=== PATIENT | male | born 1960 | race Caucasian/White ===

== ENCOUNTER 2017-08-08 05:58 | Day surgery (SDC) | payer BC, OTHER ==
[2017-08-07 15:09] LABS: BASOPHILS 0.3 % (0-2); EOSINOPHILS 2.1 % (0-7); HEMATOCRIT 48.4 % (42.0-54.0); HEMOGLOBIN 16.2 g/dL (13.5-17.5); IMMATURE GRANULOCYTES 0.1 % (0-5); MCH 32.9 pg (26.0-34.0); MCHC 33.5 g/dL (31.0-37.0); MCV 98.4 fL (80.0-100.0); MEAN PLATELET VOLUME 11.2 fL (7.4-10.4); MONOCYTES 7.9 % (2-11); NEUTROPHILS 56.6 % (40-80); PLATELET COUNT 189 10x3/uL (130-400); RBC 4.92 10x6/uL (4.20-6.10); RDW 13.6 % (11.5-14.5); WBC 7.3 10x3/uL (4.8-10.8)
[2017-08-07 15:16] LABS: ANION GAP 8.7 mmol/L (8-16); CALCIUM 9.4 mg/dL (8.5-10.1); CARBON DIOXIDE 33.9 mmol/L (21.0-32.0); CREATININE - SERUM 4.9 mg/dL (0.6-1.3); POTASSIUM - SERUM 3.6 mmol/L (3.5-5.1)
[2017-08-07 15:17] LABS: APTT 29.2 SECONDS (22.8-39.4); INR 0.9 (0.85-1.17); PROTIME 11.9 SECONDS (11.6-15.0)
[~2017-08-08 05:58] MED LIST: BAYER CHEWABLE81 MG PO; HYDROCODON-ACE1 EAC7 PO; HYZAAR 100-12.51 TAB PO; LIPITOR40 MG PO; PRINIVIL20 MG; TOPROL XL100 MG; ZOCOR20 MG PO; ZYLOPRIM100 MG PO
[2017-08-08 07:02] VITALS: BP 142/74; BMI 30.1
[2017-08-08] MEDS ORDERED: ULTRAM50 MG PO (09:22)
--- NOTE | 2017-08-08 09:35 | NUR ---
TO ROOM AWAKE AND ALERT, DRESSING C/D/I TO ABD
--- NOTE | 2017-08-08 11:09 | NUR ---
1100 DISCHARGE INSTRUCTIONS COMPLETE. FOLLOW UP APPOINTMENT MADE. PRESCRIPTION FOR TRAMADOL GIVEN. PT NAUSEATED BUT DOES NOT WANT TO TAKE ANY MEDICATION-STATED HE FEELS BETTER AFTER HE THROWS UP. PT ESCORTED OUT BY PATRICIA DECKER.
--- NOTE | 2017-08-11 16:39 | OP ---
PATIENT NAME: NOY OLIVIA JR MEDICAL RECORD: [id number] :64 LOCATION:D.OPS ADMISSION DATE: SURGEON: EDGAR IBRAHIM MD DATE OF OPERATION: 08/08/2017 REFERRING PHYSICIAN: Noy Malik MD PREOPERATIVE DIAGNOSIS: End-stage renal disease, on dialysis. POSTOPERATIVE DIAGNOSIS: End-stage renal disease, on dialysis. OPERATION PERFORMED: Laparoscopy with insertion of peritoneal dialysis catheter, inserting a left-sided gooseneck dual cuff coil catheter. SURGEON: Edgar Ibrahim MD ANESTHESIA: General endotracheal per [employer] BUSINESS DEVELOPMENT. PREOPERATIVE NOTE: Mr. Olivia is a 57-year-old white male with end-stage renal disease, on chronic hemodialysis, with a right brachial translocated basilic AV fistula, which has required several interventions I am told He wants to do home dialysis and have a peritoneal catheter implanted, is brought to the OR for that purpose. DESCRIPTION OF PROCEDURE: Under general endotracheal anesthesia in supine position, the patient was prepped and draped in a sterile manner with both arms at his side. The abdomen was entered with a 5 mm Optiview XL port and 5-mm diameter laparoscope through a stab incision in the right upper quadrant. The abdomen was insufflated then with carbon dioxide. There were no adhesions or hernias found or any signs of inflammatory processes, masses, etc. The preferred site for insertion of the catheter had been marked preoperatively and at a site just above the level of the umbilicus over the left rectus. I made an incision below and medial to that and inserted a needle and then a guidewire directly into the abdominal cavity. A dilator peel-away sheath was inserted over the wire and lastly the catheter inserted. I placed a 5-mm port in the right lower quadrant and with a grasper pulled the catheter down into the abdominal cavity, and with a hemostat pushed the deeper of the 2 Dacron felt cuffs into the substance of the rectus muscle and parked it just anterior to the posterior sheath and peritoneum as viewed from within. The catheter was then pulled to a slightly superior and lateral incision site through a subcutaneous tunnel, leaving the superficial Dacron felt cuff well into the subcutaneous tissues. The catheter was accessed and irrigated and then aspirated. It functioned well. It was heparin-locked, clamped and capped. The insufflated carbon dioxide was allowed to escape. The wound was infiltrated with 0.25% Marcaine without epinephrine. The wounds were closed with interrupted inverted 3-0 Vicryl and Dermabond glue and dressed with Maxorb Ag, Tegaderm and Cavilon skin prep. The catheter exit site was sealed with Dermabond glue and then the catheter further secured with Mastisol and quarter inch Steri-Strips in the usual manner. A BioPatch was placed on the catheter at the exit site and the catheter was then coiled and covered with a sterile 4 x 4 dressing. The patient at that point was awakened and taken to the recovery room in stable condition. Blood loss throughout was minimal and unreplaced. All sponges, instruments, and needles were accounted for. No drain was used and no surgical specimen was submitted for histopathology. OPERATIVE REPORT [id number] CORWINNOY JR Mr. Olivia will be allowed to go home today. He will return to see me in my office next week for followup visit. He also will be scheduled to see the [facility] peritoneal dialysis nurses next week, so that his catheter can be flushed and the dressings changed on the catheter. I have given him a prescription for tramadol 50 mg #20, he can take 1 p.o. every 4 hours p.r.n. pain. TRANSINT:[id number] Voice Confirmation ID: [id number] DOCUMENT ID: [id number] EDGAR IBRAHIM MD at 1639 CC: NOY MALIK MD [id number] DICTATION DATE: 08/08/17 0931 ASSET LIABILITY ANALYST: 08/08/17 1107 [facility] 08/08/17 [facility] [address] [place] [address]
== END 2017-08-08 11:00 | disposition home or self-care (01) ==
LOC: D.OPS 05:58 → D.PAN 08:00 → D.OPS 08:00
PROVIDERS: Surgery
DX: I12.0 Hypertensive chronic kidney disease with stage 5 chronic kidney disease or end stage renal disease (principal); N18.6 End stage renal disease; Z99.2 Dependence on renal dialysis; Z95.1 Presence of aortocoronary bypass graft; I25.10 Atherosclerotic heart disease of native coronary artery without angina pectoris; Z87.891 Personal history of nicotine dependence; Z01.812 Encounter for preprocedural laboratory examination

== ENCOUNTER 2020-03-10 23:20 | Inpatient (IN) | payer OTHER ==
[~2020-03-10] VITALS: Ht 177.8 cm; Wt 97.1 kg
[~2020-03-10 23:20] MED LIST changes: -TOPROL XL100 MG; +TOPROL XL100 MG PO; +ULTRAM50 MG PO
[2020-03-11 00:07] LABS: BASOPHILS 0.2 % (0-2); EOSINOPHILS 0.2 % (0-7); HEMATOCRIT 51.1 % (42.0-54.0); HEMOGLOBIN 16.8 g/dL (13.5-17.5); IMMATURE GRANULOCYTES 0.5 % (0-5); LYMPHOCYTES 19.2 % (15-50); MCH 34.6 pg (26.0-34.0); MCHC 32.9 g/dL (31.0-37.0); MCV 105.1 fL (80.0-100.0); MEAN PLATELET VOLUME 11.8 fL (7.4-10.4); MONOCYTES 6.2 % (2-11); NEUTROPHILS 73.7 % (40-80); RBC 4.86 10x6/uL (4.20-6.10); RDW 14.7 % (11.5-14.5); WBC 5.9 10x3/uL (4.8-10.8)
[2020-03-11 00:08] LABS: PLATELET COUNT 262 10x3/uL (130-400)
[2020-03-11 00:30] LABS: ALBUMIN 2.4 g/dL (3.4-5.0); AMYLASE - SERUM 34 U/L (25-115); BILIRUBIN - TOTAL 1.11 mg/dL (0.2-1.3); CALC OSMOLALITY 267 mosm/kg (275-300); CALCIUM 9.2 mg/dL (8.5-10.1); CARBON DIOXIDE 29.2 mmol/L (21.0-32.0); CHLORIDE - SERUM 94 mmol/L (98-107); CKMB 3.1 U/L (0.0-3.6); CREATINE KINASE 391 UL (21-232); CREATININE - SERUM 11.5 mg/dL (0.6-1.3); GLUCOSE 102 mg/dL (74-106); PROTEIN - SERUM 8.2 g/dL (6.4-8.2); SODIUM 129 mmol/L (136-145); UREA NITROGEN 39 mg/dL (7-18); eGFR NON AFRICAN AMERICAN 5 mL/min (90-120)
[2020-03-11 00:31] LABS: ALKALINE PHOSPHATASE 83 U/L (30-120); ALT (SGPT) 24 U/L (10-68); LIPASE 72 U/L (73-393); POTASSIUM - SERUM 3.1 mmol/L (3.5-5.1); TROPONIN-I < 0.017 ng/mL (0.000-0.060)
--- NOTE | 2020-03-11 02:14 | NUR ---
REPORT RECEIEVED FROM JERONIMO YIN. AWAITING PT'S ARRIVAL TO ROOM 2101.
[2020-03-11] MEDS ORDERED: FOSRENOL750 MG PO (02:35)
[2020-03-11] MEDS ORDERED: PEPCID AC20 MG PO (02:38)
[2020-03-11] MEDS ORDERED: SENSIPAR30 MG PO (02:39)
[2020-03-11] MEDS ORDERED: GENTAMICIN SULF30 G1 TOPICAL (02:41)
[2020-03-11 03:52] VITALS: BP 111/67; BMI 30.7
--- NOTE | 2020-03-11 07:30 | NUR ---
PT RESTING COMFORTABLY, WOKE EASILY TO US ENTERING ROOM. NO COMPLAINTS OR CONCERNS STATED THIS AM, ALL QUESTIONS ANSWERED TO THE BEST OF MY ABILITY. CL IN REACH, SRX2.
[2020-03-11 09:16] VITALS: BMI 30.7
[2020-03-11 09:43] VITALS: Ht 177.8 cm; Wt 97.1 kg
[2020-03-11 09:47] VITALS: BP 107/69
--- NOTE | 2020-03-11 10:50 | NUR ---
PT AWAKE AND ORIENTED, STARTED FILLING P.D @ 0900, PT HAS WAS PAUSED AND TAKEN FOR C/T. THEN PLACED BACK ON TO FILL. FILLED FINISHED AT 1045. WILL RETIME PD ACCORDINGINLY,.
--- NOTE | 2020-03-11 11:22 | NUR ---
I have reviewed this patient and I concur with the Shift Assessment completed by the Licensed Practical Nurse today this shift.
--- NOTE | 2020-03-11 12:14 | NUR ---
PT AWAKE AND ORIENTED EATING LUNCH, STATES PAIN IS NOT BAD IT WAS EARLIER. WILL CONT TO MONITOR .CL INREACH, SRX2,
[2020-03-11 13:10] VITALS: BP 97/59
[2020-03-11 15:23] LABS: NEUT - BF 97 %
[2020-03-11 17:59] VITALS: BP 95/60
--- NOTE | 2020-03-11 18:55 | NUR ---
REPORT RECEIVED, PT CARE ASSUMED. WROTE NAME ON BOARD. PT SITTING UP IN BED, WATCHING TV, AAOX4. REQUESTING WATER, PROVIDED. DENIES ANY OTHER NEEDS AT THIS TIME. BED IN LOWEST, SRX1, CALL LIGHT WITHIN REACH. WILL CTM.
[2020-03-11 20:30] VITALS: BP 90/54
[2020-03-12 00:30] VITALS: BP 91/57
[2020-03-12 04:25] VITALS: BP 96/55
[2020-03-12 04:59] LABS: BASOPHILS 0.4 % (0-2); EOSINOPHILS 3.2 % (0-7); HEMATOCRIT 47.1 % (42.0-54.0); HEMOGLOBIN 14.9 g/dL (13.5-17.5); IMMATURE GRANULOCYTES 0.2 % (0-5); LYMPHOCYTES 15.1 % (15-50); MCH 33.9 pg (26.0-34.0); MCHC 31.6 g/dL (31.0-37.0); MEAN PLATELET VOLUME 11.3 fL (7.4-10.4); NEUTROPHILS 75.1 % (40-80); PLATELET COUNT 247 10x3/uL (130-400); RBC 4.39 10x6/uL (4.20-6.10); RDW 14.7 % (11.5-14.5); WBC 5.7 10x3/uL (4.8-10.8)
[2020-03-12 05:05] LABS: MCV 107.3 fL (80.0-100.0)
[2020-03-12 05:25] LABS: ANION GAP 15.4 mmol/L (8-16); CALCIUM 8.6 mg/dL (8.5-10.1); CARBON DIOXIDE 30.3 mmol/L (21.0-32.0); MAGNESIUM - SERUM 1.7 mg/dL (1.8-2.4); PHOSPHOROUS 6.8 mg/dL (2.5-4.9)
[2020-03-12 05:27] LABS: POTASSIUM - SERUM 3.7 mmol/L (3.5-5.1)
--- NOTE | 2020-03-12 07:30 | NUR ---
PT AWAKE AND ORIETNED, LYING IN BED. STATES HE JUST COMPLETED PD. NO COMPLAINTS OR CONCERNS, STATES HE'S FEELING BETTER TODAY. CL IN REACH, SRX2.
--- NOTE | 2020-03-12 09:20 | NUR ---
PT IS AWAKE ALERT AND OREINTED, SITTING IN BEDSIDE RELCINER. DISCUSSED P.D FLUID WITH ASHOK ORTIZ PT EXPRESSED CONCERNS IT WAS NOT A HIGH ENOUGH PERCENTAGE. WILL RESTART AT 1100 WITH NEW 2.5% BAG. CL IN REACH, SRX2.
[2020-03-12 09:24] VITALS: BP 94/59
[2020-03-12 12:10] VITALS: BP 101/62
--- NOTE | 2020-03-12 12:50 | NUR ---
PT ALET AND ORIENTED, SITTING IN CHAIR. FINSIHED DIALYSIS (SEE PAPERWORK). NO COMPLAINTS OR CONCERNS, STATES HE'S HOPEUFLL TO GO HOME TOMORROW HE IS FEELING MUCH BETTER. SAINA BARRETO, SRX2.
--- NOTE | 2020-03-12 13:37 | NUR ---
I have reviewed this patient and I concur with the Shift Assessment completed by the Licensed Practical Nurse today this shift.
--- NOTE | 2020-03-12 15:11 | NUR ---
PT IS RESTING PEACEFULLY, LYING IN BED ON SIDE. BREATHS EVEN/REGULAR AND UNLABORED, EYES CLOSED, NO SIGNS OR SYMTPOMS OF ACTUE DISTTRESS AT THIS TIME. CL IN REACH, SRX2.
--- NOTE | 2020-03-12 17:50 | NUR ---
COMPLETED P.D FOR THE EVENING. PT STATES HE'S THRILLED THE FLUID LOOKS BETTER. IT IS MOSTLY YELLOW AND CLEAR NOW COMPARED TO PREVIOUS DAYS CLOUDY FLUID WITH MODERATE TO HEAVY SEDAMENT. CL INR EACH, SRX2.
[2020-03-12 18:11] VITALS: BP 98/63
--- NOTE | 2020-03-12 19:10 | NUR ---
REPORT RECEIVED. BEDSIDE SHIFT REPORT COMPLETE. PT UP IN BED WATCHING TV, RR EVEN AND UNLABORED. NO DISTRESS OBSERVED. DENIES NEEDS AT THIS TIME. CALL LIGHT IN REACH. WILL CTM.
[2020-03-12 20:00] VITALS: BP 86/53
[2020-03-13 04:31] VITALS: BP 99/65
--- NOTE | 2020-03-13 07:11 | NUR ---
PT AWAKE AND ORIENTED, LYING IN BED WATCHING TELIVISION. PT IS VERY HOPEFULLY TO D/C TODAY, STATES HIS PD FLUID LOOKS MUCH BETER AND HE FEELS GOOD. CL IN REACH, SRX2.
--- NOTE | 2020-03-13 09:33 | NUR ---
PT AWAKE AND ORIENTED, TOOK MEDICATIONS WITHOUT COMPLICATIONS. INFORMED PT OF POTENTIAL D/C PLAN, THAT WE WERE WAITING FOR THE SAMPLE RESULTS THAT WE WOULD OBTAIN AT HIS 1100 P.D. PT IS WORRIED D/T HIS HAVING TO DRIVE 2 HOURS TO PICK HIM UP. CL INR EACH, SRX2.
[2020-03-13 09:46] VITALS: BP 104/58
[2020-03-13 11:51] VITALS: BP 113/69
[2020-03-13 14:28] LABS: EOS BF 1 %; MACROPHAGES BF 16 %; NEUT - BF 69 %
--- NOTE | 2020-03-13 14:36 | NUR ---
CALLED LAB RESULTS TO DR. FISCHER, SHE STATED SHE WOULE SEE ABOUT DISCHARGING HIM WHEN SHE ROUNDED. WAS AT [facility] AT THE TIME. WILL CONT. TO MONITOR AND UPDATE PT NEEDED.
[2020-03-13 17:02] VITALS: BP 105/72
--- NOTE | 2020-03-13 17:03 | NUR ---
SPOKE TO DR. FISCHER, SHE WILL COME IN TO ASSES AND LIKELY D/C PATIENT. INFORMED PT, HE REFUSED HIS DIALYSIS SAYING HE WILL DO HIS REGULAR HOME P.D TONGHT. PT CALLED TO HEAD THIS WAY THEY LIVE 2HRS AWAY.
[2020-03-13] MEDS ORDERED: TOPROL XL25 MG PO (17:39)
--- NOTE | 2020-03-13 18:40 | NUR ---
PT GIVEN D/C INSTRUCTIONS, I/V OUT TIP INTACT. STATES WILL BE HERE IN 15-20 MINUTES.
--- NOTE | 2020-03-13 19:05 | NUR ---
PT ESCORTED OUT VIA AMBULATION, DENIES NEED FOR WHEELCHAIR.
== END 2020-03-13 19:06 | disposition home or self-care (01) | DRG 919 ==
LOC: D.ER 23:20 → D.M2 03-11 01:41
PROVIDERS: Family Medicine; ADMIT Internal Medicine Nephrology; ATTEND Internal Medicine Nephrology
DX: T85.71XA Infection and inflammatory reaction due to peritoneal dialysis catheter, initial encounter (principal); K65.9 Peritonitis, unspecified; N18.6 End stage renal disease; I12.0 Hypertensive chronic kidney disease with stage 5 chronic kidney disease or end stage renal disease; Y84.9 Medical procedure, unspecified as the cause of abnormal reaction of the patient, or of later complication, without mention of misadventure at the time of the procedure

== ENCOUNTER 2020-03-26 08:33 | Inpatient (IN) | payer OTHER ==
[~2020-03-26] VITALS: Ht 177.8 cm; Wt 96.1 kg
[~2020-03-26 08:33] MED LIST changes: +FOSRENOL750 MG PO; +GENTAMICIN SULF30 G1 TOPICAL; +PEPCID AC20 MG PO; +SENSIPAR30 MG PO; +TOPROL XL25 MG PO
[2020-03-26 09:38] VITALS: BP 110/69
[2020-03-26 09:38] LABS: PROTEIN - BODY FLUID 0.3 G/DL
[2020-03-26 09:46] LABS: CALCIUM 9.1 mg/dL (8.5-10.1); CARBON DIOXIDE 29.1 mmol/L (21.0-32.0); CREATININE - SERUM 12.6 mg/dL (0.6-1.3); POTASSIUM - SERUM 3.1 mmol/L (3.5-5.1)
[2020-03-26 09:52] LABS: ALBUMIN 2.1 g/dL (3.4-5.0); BILIRUBIN - TOTAL 0.77 mg/dL (0.2-1.3); MAGNESIUM - SERUM 1.6 mg/dL (1.8-2.4); PHOSPHOROUS 5.8 mg/dL (2.5-4.9)
[2020-03-26 09:55] LABS: BASOPHILS 0.2 % (0-2); EOSINOPHILS 0.9 % (0-7); HEMATOCRIT 50.1 % (42.0-54.0); HEMOGLOBIN 16.5 g/dL (13.5-17.5); IMMATURE GRANULOCYTES 0.1 % (0-5); LYMPHOCYTES 9.8 % (15-50); MCH 34.5 pg (26.0-34.0); MCHC 32.9 g/dL (31.0-37.0); MCV 104.8 fL (80.0-100.0); MEAN PLATELET VOLUME 11.4 fL (7.4-10.4); MONOCYTES 5.1 % (2-11); NEUTROPHILS 83.9 % (40-80); PLATELET COUNT 336 10x3/uL (130-400); RBC 4.78 10x6/uL (4.20-6.10); WBC 10.8 10x3/uL (4.8-10.8)
[2020-03-26 10:12] LABS: MACROPHAGES BF 7 %; NEUT - BF 77 %
[2020-03-26 12:17] VITALS: BP 127/73
[2020-03-26 12:22] VITALS: BMI 24.7
[2020-03-26 15:45] VITALS: BP 106/68
[2020-03-26 20:30] VITALS: BP 98/55
[2020-03-27] VITALS (7 sets, daily range): BP systolic 104–123; BP diastolic 47–70; BMI 24.6
--- NOTE | 2020-03-27 04:31 | NUR ---
PT RESTING QUIEYLY DURING THE NIGHT. NO NEEDS EXPRESSED. UTALIZES CALL LIGHT FOR ASSISTANCE. C/O OF ABD PAIN, NO FURTHER NEEDS EXPRESSED. WILL CTM.
[2020-03-27 05:28] LABS: BASOPHILS 0.1 % (0-2); EOSINOPHILS 1.6 % (0-7); HEMATOCRIT 43.3 % (42.0-54.0); HEMOGLOBIN 14.4 g/dL (13.5-17.5); IMMATURE GRANULOCYTES 0.2 % (0-5); LYMPHOCYTES 8.4 % (15-50); MCHC 33.3 g/dL (31.0-37.0); MCV 105.1 fL (80.0-100.0); MEAN PLATELET VOLUME 10.9 fL (7.4-10.4); MONOCYTES 6.9 % (2-11); NEUTROPHILS 82.8 % (40-80); PLATELET COUNT 277 10x3/uL (130-400); RBC 4.12 10x6/uL (4.20-6.10); RDW 15.1 % (11.5-14.5); WBC 10.6 10x3/uL (4.8-10.8)
[2020-03-27 05:44] LABS: ANION GAP 11.9 mmol/L (8-16); CALCIUM 8.6 mg/dL (8.5-10.1); CREATININE - SERUM 12.5 mg/dL (0.6-1.3)
[2020-03-27 05:50] LABS: POTASSIUM - SERUM 2.9 mmol/L (3.5-5.1)
--- NOTE | 2020-03-27 12:00 | NUR ---
INITIATED PERITONEAL DIALYSIS. PT STARTED PUTTING HIS GLOVES ON . TOLD PT THAT I WOULD BE DOING THE PD FLUIDS. HE STATED HE COULD DO IT AND DID IT HIMSELF LAST NIGHT. EXPLAINED THAT HE HAD AN INFECTION AND THAT IT NEEDS TO BE DONE BY OUR STAFF TO PREVENT INFECTION FROM SPREADING AND TO GET A CONSISTANT WAY OF DOING IT. RELUCTANTLY AGREED. I WAS SETTING FLUIDS UP, PT KEPT TOUCHING TUBING. INSTRUCTED NOT TO TOUCH TUBING MUCH POSSIBLY. PT PROCEEDED TO PUT ON GLOVES AND TOUCH TUBING. EXPLAINED AGAIN, TO TRY AND NOT TOUCH THE TUBING MUCH POSSIBLE. PT VERBALIZED UNDERSTANDING.
[2020-03-28 04:27] VITALS: BP 97/54
[2020-03-28 06:13] LABS: ANION GAP 13.7 mmol/L (8-16); CALCIUM 9.1 mg/dL (8.5-10.1); CARBON DIOXIDE 29.7 mmol/L (21.0-32.0); CREATININE - SERUM 11.9 mg/dL (0.6-1.3); VANCOMYCIN - RANDOM 19.3 ug/mL (10.0-20.0)
[2020-03-28 06:18] LABS: POTASSIUM - SERUM 3.4 mmol/L (3.5-5.1)
[2020-03-28 06:21] LABS: BASOPHILS 0.2 % (0-2); EOSINOPHILS 2.3 % (0-7); HEMATOCRIT 47.1 % (42.0-54.0); HEMOGLOBIN 15.2 g/dL (13.5-17.5); IMMATURE GRANULOCYTES 0.3 % (0-5); LYMPHOCYTES 12.8 % (15-50); MCH 33.9 pg (26.0-34.0); MCHC 32.3 g/dL (31.0-37.0); MCV 105.1 fL (80.0-100.0); MEAN PLATELET VOLUME 11.1 fL (7.4-10.4); MONOCYTES 5.6 % (2-11); NEUTROPHILS 78.8 % (40-80); RBC 4.48 10x6/uL (4.20-6.10); RDW 15.1 % (11.5-14.5); WBC 10.8 10x3/uL (4.8-10.8)
[2020-03-28 06:27] LABS: PLATELET COUNT 349 10x3/uL (130-400)
--- NOTE | 2020-03-28 08:30 | NUR ---
REPORT RECIEVED. PT UP AT SINK WASHING FACE. RR EVEN AND UNLABORED ON RA. HE HAS A L UPPER ARM PIV INFUSING NS @10ML/HR. HE STATES HE TRIED TO EAT BREAKFAST AND EVERYTHING CAME BACK UP. PT STATES HE IS AFRAID TO TAKE MORING MEDS BECAUSE HE IS AFRAID THEY WILL NOT STAY DOWN. BED LOCKED AND IN LOWEST POSITION, CALL LIGHT WITHIN REACH. WILL CTM
[2020-03-28 08:47] VITALS: BP 99/56
--- NOTE | 2020-03-28 15:28 | NUR ---
I have reviewed this patient and I concur with the Shift Assessment completed by the Licensed Practical Nurse today this shift.
[2020-03-28 17:10] VITALS: BP 95/59
[2020-03-28 18:08] LABS: EOS BF 7 %; MACROPHAGES BF 1 %; MESOTHELIALS BF 1 %; NEUT - BF 88 %
[2020-03-28 19:58] VITALS: BP 107/53
--- NOTE | 2020-03-28 20:08 | NUR ---
AWAKE AND ON THE PHONE PT GAVE THUMBS UP AND CONT TO TALK ON PHONE BED LOW AND LOCKED
[2020-03-28 23:28] VITALS: BP 105/55
[2020-03-29 04:11] VITALS: BP 107/57
[2020-03-29 05:17] LABS: ANION GAP 11.8 mmol/L (8-16); CALCIUM 8.9 mg/dL (8.5-10.1); CARBON DIOXIDE 29.6 mmol/L (21.0-32.0); POTASSIUM - SERUM 3.4 mmol/L (3.5-5.1); VANCOMYCIN - RANDOM 16.4 ug/mL (10.0-20.0)
[2020-03-29 05:27] LABS: BASOPHILS 0.1 % (0-2); EOSINOPHILS 2.9 % (0-7); HEMATOCRIT 46.7 % (42.0-54.0); HEMOGLOBIN 15.4 g/dL (13.5-17.5); IMMATURE GRANULOCYTES 0.2 % (0-5); LYMPHOCYTES 9.3 % (15-50); MCH 34.5 pg (26.0-34.0); MCV 104.7 fL (80.0-100.0); MEAN PLATELET VOLUME 11.2 fL (7.4-10.4); NEUTROPHILS 80.5 % (40-80); PLATELET COUNT 310 10x3/uL (130-400); RBC 4.46 10x6/uL (4.20-6.10); RDW 15.1 % (11.5-14.5); WBC 9.2 10x3/uL (4.8-10.8)
--- NOTE | 2020-03-29 08:00 | NUR ---
PT RECEIVED AWAKE AND ALERT. COMPLAINTS OF PAIN TO ABDOMEN, UNABLE TO EAT OR TAKE MANY MEDS. NPO FOR NOW, SURGERY CONSULT.
[2020-03-29 08:12] VITALS: BP 84/54
[2020-03-29 11:40] VITALS: BP 107/58
--- NOTE | 2020-03-29 13:38 | NUR ---
Nutrition Follow-up: NPO for PD cath removal. Wt: 218.2# (03/29); 216# (03/28) Labs noted: K+ 3.4 Meds noted: Pepcid, Renagel, Floranex -Rec ADAT when medically feasible. -Monitor wt. -RD following.
[2020-03-29 13:53] VITALS: Ht 177.8 cm; Wt 96.1 kg
--- NOTE | 2020-03-29 14:22 | NUR ---
PT TO ROOM FROM PACU ON BED. SLEEPY BUT ANSWERS QUESTIONS. DRESSING TO LEFT ABDOMEN IS CDI. FAMILY AT BEDSIDE.
[2020-03-29 16:35] VITALS: BP 122/72
--- NOTE | 2020-03-29 19:19 | NUR ---
PT LYING IN BED RESTING COMFORTABLY WITH EYES CLOSED. EASILY AWAKEN WITH VOICE STIMULATION. FAMILY MEMBER IS AT BEDSIDE. PT HAS NO COMPLAINTS AT THIS TIME. CALL LIGHT WITH IN REACH AND BED IS IN ITS LOWEST POSITION. WILL CONTINUE TO MONITOR.
[2020-03-29 20:00] VITALS: BP 124/77
--- NOTE | 2020-03-29 21:15 | NUR ---
PT C/O NAUSEA AND VOMITING. ASHOK NAM NOTIFIED. NEW PRN ORDERS. WILL ADMINISTER MEDICATION PER ORDER. CALLL LIGHT WITH IN REACH
[2020-03-30] VITALS: BP 124/75
--- NOTE | 2020-03-30 01:00 | NUR ---
PT C/O NAUSEA AND VOMITING. ASHOK NAM NOTIFIED. NEW PRN ORDERS ON DEC. WILL ADMINISTER MEDICATION.
--- NOTE | 2020-03-30 01:09 | NUR ---
PRN PAIN MEDICATION GIVEN FOR PAIN LEVEL 9/10. PT TOLERATED WELL. PT STATES THAT HE THREW UP A GLOB OF YELLOW AND GREEN PHLEGM AND THAT HE FEELS BETTER PAIN LEVEL IS NOW A 5/10. FAMILY IS AT BEDSIDE CALL LIGHT AND OTHER PERSONAL ITEMS WITH IN REACH. WILL CONTINUE TO MONITOR
--- NOTE | 2020-03-30 03:15 | NUR ---
I have reviewed this patient and I concur with the Shift Assessment completed by the Licensed Practical Nurse today this shift.
[2020-03-30 05:07] LABS: BASOPHILS 0 % (0-2); EOSINOPHILS 0.1 % (0-7); HEMATOCRIT 49.9 % (42.0-54.0); IMMATURE GRANULOCYTES 0.4 % (0-5); LYMPHOCYTES 5.4 % (15-50); MCH 33.6 pg (26.0-34.0); MCHC 32.1 g/dL (31.0-37.0); MCV 104.8 fL (80.0-100.0); MEAN PLATELET VOLUME 10.5 fL (7.4-10.4); MONOCYTES 5.4 % (2-11); NEUTROPHILS 88.7 % (40-80); PLATELET COUNT 336 10x3/uL (130-400); RBC 4.76 10x6/uL (4.20-6.10); RDW 15.1 % (11.5-14.5)
[2020-03-30 05:35] LABS: ANION GAP 19.8 mmol/L (8-16); CALCIUM 9.2 mg/dL (8.5-10.1); CARBON DIOXIDE 23.2 mmol/L (21.0-32.0); CREATININE - SERUM 13.8 mg/dL (0.6-1.3); VANCOMYCIN - RANDOM 14.9 ug/mL (10.0-20.0)
[2020-03-30 07:14] LABS: HEPATITIS C ANTIBODY <0.1 S/CO RAT (0.0-0.9)
--- NOTE | 2020-03-30 08:00 | NUR ---
PT RECEIVED AWAKE AND ALERT. COMPLAINTS OF PAIN AND NAUSEA. DR IY IN ROOM WITH VERBAL ORDER TO DC ZOFRAN DUE TO REACTION POTENTIAL SECONDARY TO DIFLUCAN.
--- NOTE | 2020-03-30 09:00 | MORECARE ---
CASE MANAGEMENT DISCHARGE SUMMARY PATIENT: NOY OLIVIA JR UNIT: [id number] ADM DATE: 03/26/20 AGE: 59 : 64 SEX: M ROOM/BED: D.2134 AUTHOR: TARYN STEVENS PHYSICIAN: REFERRING PHYSICIAN: NOY MICHAEL MD DATE OF SERVICE: 03/30/20 Discharge Plan Patient Name: [facility]IVIA [facility] [facility] 1960 Planned Disposition: Home or Self Care Anticipated Discharge Date: Discharge Date: Expected LOS: Initial Reviewer: [email or web address] Initial Review Date: 03/26/2020 Generated: 03/30/20 10:00 am Patient Name: NOY OLIVIA Page [phone] at 0900 All edits/amendments must be made on the electronic document DICTATION DATE: 03/30/20899 STEEL LAYER: HUGH 03/30/20 09 RPT#: [id number] DC DATE: STATUS: ADM IN [facility] [address] [place] [address] END OF REPORT
[2020-03-30 09:37] VITALS: BP 145/84
[2020-03-30 12:00] VITALS: BP 114/68
[2020-03-30 20:00] VITALS: BP 108/68
--- NOTE | 2020-03-30 21:51 | NUR ---
PT SITTING UP ON SIDE OF BED TAKING BED BATH. NO SIGNS OF DISTRESS NOTED. RESPIRATIONS EVEN AND UNLABORED. PT HAS NO COMPLAINTS AT THIS TIME. PT IS TOLERATING BED BATH WELL WIDE IS AT BEDSIDE. CALL LIGHT AND OTHER PERSONAL ITEMS WITH IN REACH. WILL CONTINUE TO MONITOR
[2020-03-31 04:00] VITALS: BP 121/66
[2020-03-31 05:19] LABS: HEMATOCRIT 47.2 % (42.0-54.0); HEMOGLOBIN 15.1 g/dL (13.5-17.5); MCH 33.9 pg (26.0-34.0); MCV 105.8 fL (80.0-100.0); MEAN PLATELET VOLUME 10.9 fL (7.4-10.4); PLATELET COUNT 383 10x3/uL (130-400); RBC 4.46 10x6/uL (4.20-6.10); RDW 15.4 % (11.5-14.5); WBC 20.4 10x3/uL (4.8-10.8)
[2020-03-31 05:39] LABS: EOSINOPHILS 1 % (0-7); LYMPHOCYTES 6 % (15-50); MONOCYTES 5 % (2-11); NEUTROPHILS 88 % (40-80); PLATELET ESTIMATE NORMAL
[2020-03-31 05:45] LABS: ANION GAP 15.5 mmol/L (8-16); CALCIUM 9.9 mg/dL (8.5-10.1); CARBON DIOXIDE 26.8 mmol/L (21.0-32.0); CREATININE - SERUM 11.2 mg/dL (0.6-1.3); POTASSIUM - SERUM 4.3 mmol/L (3.5-5.1); VANCOMYCIN - RANDOM 27.2 ug/mL (10.0-20.0)
--- NOTE | 2020-03-31 08:30 | NUR ---
N/V NOTED. DONG HUFF NOTIFIED. NEW ORDERS GIVEN.
[2020-03-31 09:32] VITALS: BP 127/75
--- NOTE | 2020-03-31 10:00 | MORECARE ---
CASE MANAGEMENT DISCHARGE SUMMARY PATIENT: NOY OLIVIA JR UNIT: [id number] ADM DATE: 03/26/20 AGE: 59 : 64 SEX: M ROOM/BED: D.2134 AUTHOR: TARYN STEVENS PHYSICIAN: REFERRING PHYSICIAN: NOY MICHAEL MD DATE OF SERVICE: 03/31/20 Discharge Plan Patient Name[facility]IVIA [facility] [facility] 1960 Planned Disposition: Home or Self Care Anticipated Discharge Date: Discharge Date: Expected LOS: Initial Reviewer: [email or web address] Initial Review Date: 03/26/2020 Generated: 03/31/20 11:00 am DCPIA - Discharge Planning Initial Assessment Updated by [email or web address]: Lizzie Wright on 03/31/20 9:55 am * Is the patient Alert and Oriented? Yes * How many steps to enter\exit or inside your home? 0/0 * PCP DOES NOT HAVE PCP. SEES DR MICHAEL * Pharmacy [facility] * Preadmission Environment Home with Family * ADLs Independent * Equipment None * List name and contact numbers for known caregivers / representatives who currently or will assist patient after discharge: LYNNE [phone] * Verbal permission to speak to the caregivers and representatives has been obtained from the patient. Yes * Community resources currently utilized Other * Additional services required to return to the preadmission environment? No * Can the patient safely return to the preadmission environment? Yes * Has this patient been hospitalized within the prior 30 days at any hospital? No Last DP export: 03/30/20 8:00 am Patient Name: NOY OLIVIA Page [phone] at 1000 All edits/amendments must be made on the electronic document DICTATION DATE: 03/31/20 1000 ELECTRICAL MECHANIC: HUGH 03/31/20 1000 RPT#: [id number] DC DATE: STATUS: ADM IN [facility] [address] [place] [address] END OF REPORT
--- NOTE | 2020-03-31 10:16 | MORECARE ---
CASE MANAGEMENT DISCHARGE SUMMARY PATIENT: NOY OLIVIA JR UNIT: [id number] ADM DATE: 03/26/20 AGE: 59 : 64 SEX: M ROOM/BED: D.7014 AUTHOR: TARYN STEVENS PHYSICIAN: REFERRING PHYSICIAN: NOY MICHAEL MD DATE OF SERVICE: 03/31/20 Discharge Plan Patient Name: NOY OLIVIA Facility[facility]:[place] : 1960 Planned Disposition: Home or Self Care Anticipated Discharge Date: Discharge Date: Expected LOS: Initial Reviewer: [email or web address] Initial Review Date: 03/26/2020 Generated: 03/31/20 11:15 am Comments DCP- Discharge Planning Updated by [email or web address]: Lizzie Wright on 03/31/20 9:[address] Patient Name: NOY OLIVIA Admission Status: ER Accout number: [id number] Admission Date: 03-26-2020 : 1960 Admission Diagnosis:PERITONITIS, UNSPECIFIED Attending: NOY MICHAEL Current LOS: 5 Anticipated DC Date: Planned Disposition: Home or Self Care Primary Insurance: [employer] PPO Discharge Planning Comments: CM met with patient to complete initial dc planning assessment. CM educated patient on the CM role and verbal consent given by patient to complete assessment. CM verified patient's address, phone number, and emergency contact phone numbers. Pt and Lynne live at [address] [place] [address] in [facility]. The telephone number is [phone] Patient lives at home with his Lynne. Pt states he has been independent of all his needs. States he will need to be scheduled for a dialysis chair in [place]. [facility] dialysis CM notified of hospital stay. 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 At discharge patient plans to return home and feels this is a safe discharge. CM discussed availability of home health, rehab services, and medical equipment. Patient denied known discharge needs at this time, but will think about HH. EWELINA was signed for any HH and will decide on HH service if needed at discharge. Transportation provider at discharge will be Lynne . CM will continue to follow and will assist as needed with dc plans/needs. Manager Pharmacy: Lizzie Wright MSN,RN,CM DCPIA - Discharge Planning Initial Assessment Updated by [email or web address]: Lizzie Wright on 03/31/20 9:55 am * Is the patient Alert and Oriented? Yes * How many steps to enter\exit or inside your home? 0/0 * PCP DOES NOT HAVE PCP. SEES DR MICHAEL * [facility] * Preadmission Environment Home with Family * ADLs Independent * Equipment None * List name and contact numbers for known caregivers / representatives who currently or will assist patient after discharge: LYNNE BETANCUR [phone] * Verbal permission to speak to the caregivers and representatives has been obtained from the patient. Yes * Community resources currently utilized Other * Additional services required to return to the preadmission environment? No * Can the patient safely return to the preadmission environment? Yes * Has this patient been hospitalized within the prior 30 days at any hospital? No Coverage Notice Reviewer: [email or web address] - Lizzie Wright Notice Issued Date-Time: 03/30/2020 8:40 Notice Type: Patient Choice Letter Notice Delivered To: Patient Relationship to Patient: Senior Telecommunications Technician Name: Delivery Method: HAND - Hand Delivered Asiya Days: Prior Verbal Notification: Recipient Understood Notice: Yes Recipient Signature: Yes Med Rec Note Co-signed by Attending: Coverage Notice Comment: ewelina signed for any hh. will need to be in [facility] Last DP export: 03/31/20 9:00 am Patient Name: NOY OLIVIA Page [phone] at 1016 All edits/amendments must be made on the electronic document DICTATION DATE: 03/31/20 1015 DATABASE TESTER: HUGH 03/31/20 1015 RPT#: [id number] DC DATE: STATUS: ADM IN [facility] [address] [place] [address] END OF REPORT
--- NOTE | 2020-03-31 13:55 | NUR ---
Nutrition Follow-up: Continues to c/o N/V. HD yesterday. Diet: Full liquid Wt: 214# (03/31); 218.2# (03/29) Labs reviewed Meds reviewed -Encourage PO intake and honor food preferences within diet restrictions. -If PO intolerance continues, may consider nutrition support. -Monitor wt. -RD following.
[2020-03-31 16:00] VITALS: BP 108/68
--- NOTE | 2020-03-31 19:30 | NUR ---
PT IN BED, AAO X 3, RESP EVEN AND UNLABORED. NO DISTRESS NOTED, CL IN REACH, SR UP X 2.
[2020-03-31 21:12] VITALS: BP 128/65
[2020-04-01 00:09] VITALS: BP 132/75
--- NOTE | 2020-04-01 05:00 | NUR ---
I have reviewed this patient and I concur with the Shift Assessment completed by the Licensed Practical Nurse today this shift.
[2020-04-01 05:07] VITALS: BP 127/74
--- NOTE | 2020-04-01 07:29 | NUR ---
PT AWAKE AND ORIENTED, LYING IN BED WATCHING TV. AT BEDSIDE. PT STATES THAT HE THINKS HE HAS A HIATAL HERNIA AND THAT THIS IS WHAT IS CAUSING ALL OF HIS P.D. PROBLEMS AND THAT HE WANTS TO HAVE A DOCTOR LOOK AT IT. PT REPEATED THIS MULTIPLE TIMES, I ASSURED HIM MULTIPLE MORE TIMES THAT I WOULD SPEAK TO THE DROralia ABOUT IT THIS MORNING AND SEE IF THERE WAS A G.IOralia SKAGGS AVALIABLE PER PTS REQUEST TO SEE PT. CL IN [facility], SRX2, ALL QUESTIONS ANSWERED TO THE BEST OF MY ABILITY.
[2020-04-01 09:44] VITALS: BP 140/76
--- NOTE | 2020-04-01 10:17 | NUR ---
PT AWAKE AND ORIENTED, LYING IN BED COMPLAINING OF PAIN, ADMINISTERED PAIN MEDS PER ORDER. NO OTHER COMPLAINTS OR CONCERNS AT THIS TIME. CL IN REACH, SRX2.
[2020-04-01 11:05] LABS: BASOPHILS 0.1 % (0-2); EOSINOPHILS 0.3 % (0-7); HEMATOCRIT 43.1 % (42.0-54.0); IMMATURE GRANULOCYTES 0.6 % (0-5); LYMPHOCYTES 4.4 % (15-50); MCH 33.8 pg (26.0-34.0); MCHC 32.5 g/dL (31.0-37.0); MCV 104.1 fL (80.0-100.0); MEAN PLATELET VOLUME 10.5 fL (7.4-10.4); MONOCYTES 5.4 % (2-11); NEUTROPHILS 89.2 % (40-80); PLATELET COUNT 408 10x3/uL (130-400); RBC 4.14 10x6/uL (4.20-6.10); RDW 15.5 % (11.5-14.5); WBC 19.5 10x3/uL (4.8-10.8)
[2020-04-01 11:20] LABS: ANION GAP 19.2 mmol/L (8-16); CALCIUM 9.7 mg/dL (8.5-10.1); CARBON DIOXIDE 22.3 mmol/L (21.0-32.0); CREATININE - SERUM 13.1 mg/dL (0.6-1.3); POTASSIUM - SERUM 4.5 mmol/L (3.5-5.1); VANCOMYCIN - RANDOM 23.7 ug/mL (10.0-20.0)
[2020-04-01 12:54] VITALS: BP 138/81
--- NOTE | 2020-04-01 14:55 | NUR ---
22 GAUGE IV PLACED TO LEFT WRIST X 1 STICK. GOOD BLOOD RETURN, EASY FLUSH. TAPED, DATED AND SECURED. PATIENT TOLERATED IV PLACEMENT WELL. NO DISTRESS.
[2020-04-01 16:00] VITALS: BP 132/70
--- NOTE | 2020-04-01 17:12 | NUR ---
I have reviewed this patient and I concur with the Shift Assessment completed by the Licensed Practical Nurse today this shift.
--- NOTE | 2020-04-01 17:23 | NUR ---
PT IN DIALYSIS
--- NOTE | 2020-04-01 17:26 | NUR ---
[facility] CALLED, STATES THEY ATTEMTPED TO CANULATED ACCESS WITH 17G NEEDLE BUT PREASURE WAS STILL AT 300 WHICH WAS TOO HIGH AND THAT THEY HAD TO USE THE TRIALYSIS ACCES.
[2020-04-01 20:00] VITALS: BP 136/77
--- NOTE | 2020-04-01 21:00 | NUR ---
PT IN BED, EYES CLOSED, RESP EVEN AND UNLABORED, NO DISTRESS NOTED, CL IN REACH, SR UP X 2.
[2020-04-02] VITALS: BP 129/75
--- NOTE | 2020-04-02 02:06 | NUR ---
I have reviewed this patient and I concur with the Shift Assessment completed by the Licensed Practical Nurse today this shift.
[2020-04-02 04:00] VITALS: BP 127/76
[2020-04-02 05:25] LABS: BASOPHILS 0.1 % (0-2); EOSINOPHILS 0.2 % (0-7); HEMATOCRIT 44.5 % (42.0-54.0); HEMOGLOBIN 14.3 g/dL (13.5-17.5); IMMATURE GRANULOCYTES 0.8 % (0-5); LYMPHOCYTES 3.3 % (15-50); MCH 33.6 pg (26.0-34.0); MCHC 32.1 g/dL (31.0-37.0); MCV 104.7 fL (80.0-100.0); MEAN PLATELET VOLUME 10.6 fL (7.4-10.4); MONOCYTES 5.9 % (2-11); NEUTROPHILS 89.7 % (40-80); PLATELET COUNT 391 10x3/uL (130-400); RBC 4.25 10x6/uL (4.20-6.10); RDW 15.9 % (11.5-14.5); WBC 19.9 10x3/uL (4.8-10.8)
[2020-04-02 06:01] LABS: BILIRUBIN - TOTAL 0.87 mg/dL (0.2-1.3); CALCIUM 9.8 mg/dL (8.5-10.1); CARBON DIOXIDE 22.8 mmol/L (21.0-32.0); CREATININE - SERUM 10.1 mg/dL (0.6-1.3); PROTEIN - SERUM 6.6 g/dL (6.4-8.2); THYROID STIMULATING HORMONE 0.46 uIU/mL (0.36-3.74); VANCOMYCIN - RANDOM 19.1 ug/mL (10.0-20.0)
[2020-04-02 06:03] LABS: ALBUMIN 1.2 g/dL (3.4-5.0); ANION GAP 18.5 mmol/L (8-16); POTASSIUM - SERUM 5.3 mmol/L (3.5-5.1)
[2020-04-02 08:44] VITALS: BP 117/74
[2020-04-02 11:41] VITALS: BP 118/71
[2020-04-02 15:24] VITALS: BP 117/72
[2020-04-02 16:08] LABS: AMPHOTERICIN B MIC 0.5 ug/mL (())
[2020-04-02 17:08] LABS: AMPHOTERICIN B MIC 1.0 ug/mL (())
--- NOTE | 2020-04-02 20:00 | NUR ---
RECEIVED UP IN BED WITH EYES OPEN AND TV ON. ALERT AND ORIENTED X4.UP AD RACHELE TO BR. 2 DSG TO LEFT LOWER ABDOME. TELEMETRY IN PLACE. AVF TO RT ARM. O2@ 3 LITERS PER NC. IV TO LT WRIST SL. DENIES ANY NEEDS ANY NEEDS.
[2020-04-02 20:30] VITALS: BP 116/69
[2020-04-03] VITALS (7 sets, daily range): BP systolic 113–134; BP diastolic 67–81
[2020-04-03 07:29] LABS: HEMATOCRIT 43.3 % (42.0-54.0); HEMOGLOBIN 14.1 g/dL (13.5-17.5); MCH 33.3 pg (26.0-34.0); MCHC 32.6 g/dL (31.0-37.0); MCV 102.4 fL (80.0-100.0); MEAN PLATELET VOLUME 10.5 fL (7.4-10.4); PLATELET COUNT 400 10x3/uL (130-400); RBC 4.23 10x6/uL (4.20-6.10); RDW 16.1 % (11.5-14.5); WBC 22.3 10x3/uL (4.8-10.8)
[2020-04-03 07:32] LABS: BILIRUBIN - TOTAL 0.98 mg/dL (0.2-1.3); CALCIUM 9.5 mg/dL (8.5-10.1); CARBON DIOXIDE 21.4 mmol/L (21.0-32.0); CREATININE - SERUM 12.4 mg/dL (0.6-1.3); PROTEIN - SERUM 6.4 g/dL (6.4-8.2); VANCOMYCIN - RANDOM 17.7 ug/mL (10.0-20.0)
[2020-04-03 07:33] LABS: ALBUMIN 1.2 g/dL (3.4-5.0); ANION GAP 20.1 mmol/L (8-16); POTASSIUM - SERUM 4.5 mmol/L (3.5-5.1)
--- NOTE | 2020-04-03 09:02 | NUR ---
AM MEDICATIONS ADMININSTERED. ENEMA ADMININSTERED WITH NO OUTPUT RECORDED. WILL CTM.
[2020-04-03 11:06] LABS: EOSINOPHILS 2 % (0-7); LYMPHOCYTES 11 % (15-50); MONOCYTES 7 % (2-11); NEUTROPHILS 80 % (40-80); PLATELET ESTIMATE INCREASED
[2020-04-03 11:07] LABS: ROULEAUX OCC
--- NOTE | 2020-04-03 19:17 | NUR ---
REPORT RECEIVED AND ROUNDING COMPLETE. PATIENT LAYING IN BED IN HIGH FOWLERS, EYES CLOSED BREATHING EVEN AND UNLABORED, SOON I WALKED IN TO THE ROOM HE OPENED HIS EYES AND ASKED FOR HIS PAIN MEDICATION, PATIENT STATES THAT HE CAN CAN TELL HIS MEDICATION IS WEARING OFF AND NEEDS MORE, WILL CHECK HIS MAR A TREAT ORDERED. PATIENT HAS A LEFT WRIST THAT IS PATENT WITH NO S/SX OF INFILTRATION. PATIENT IS WEARING NASAL CANNULA WITH 02 AT 3L. NO S/SX OF DISTRESS AT THIS TIME. CALL LIGHT WITHIN REACH AND BED IN LOWEST LOCKED POSITION. NO OTHER NEEDS AT THIS TIME.
[2020-04-04 04:23] VITALS: BP 134/74
--- NOTE | 2020-04-04 08:49 | OP ---
PATIENT NAME: NOY OLIVIA JR MEDICAL RECORD: [id number] :64 LOCATION:D.M2 D.2134 ADMISSION DATE:03/26/20 SURGEON: EDGAR IBRAHIM MD DATE OF OPERATION: 03/29/2020 PREOPERATIVE DIAGNOSES: End-stage renal disease on chronic peritoneal dialysis, dependence on chronic renal dialysis and Lou peritonitis associated with peritoneal dialysis and peritoneal dialysis catheter. POSTOPERATIVE DIAGNOSES: End-stage renal disease on chronic peritoneal dialysis, dependence on chronic renal dialysis and Lou peritonitis associated with peritoneal dialysis and peritoneal dialysis catheter. OPERATION PERFORMED: Removal of peritoneal dialysis catheter. SURGEON: Edgar Ibrahim MD ANESTHESIA: General with LMA per LUSTERER. PREOPERATIVE NOTE: This 59-year-old white male has been dialyzing with a peritoneal catheter for nearly 3 years, but has in the last month had bacterial and now Lou peritonitis. He has been hospitalized for the last few days. Dr. Yi consulted me today and asked that the catheter be removed now that his cultures have returned yeast. He was brought to the OR for that. He does have a palpably excellent right upper arm AV fistula. DESCRIPTION OF PROCEDURE: Under anesthesia in supine position, the patient was prepped and draped in a sterile manner. A vertical incision was placed directly over the deep cuff insertion site. This was to the left of the umbilicus. The incision was carried down, the catheter exposed on the superficial cuff along with segment of surrounding skin at the exit site was excised. The external catheter was discarded. Dissection deeper exposed the deep cuff seated just within or under the anterior rectus sheath and this was dissected free and removed intact. Both the segments of catheter were then discarded. They were not sent for any additional studies, pathology, culture, etc. The peritoneal fluid was emptied by suction as much as possible and the fascia defect at that site then closed with a [id number] 0 Vicryl suture. The wounds were irrigated with Ancef and gentamicin solution and infiltrated with 0.25% Marcaine with epinephrine. The wounds were then closed with bridget and dressed with Maxorb Ag, Tegaderm, and Cavilon skin prep. The patient was awakened and taken to the recovery room. Blood loss during the operation was insignificant and unreplaced. Sponges, instruments, and needles were accounted for. No drain was used and no surgical specimen was submitted for testing or culture histopathology, etc. PLAN: The patient will be returned to his room on Med 2. He will resume his diet and preoperative medications and I was asked that his wound dressings and there are two of them be changed daily and that when he is discharged from the hospital daily wound care and dressing changes should be arranged, and that he should have his bridget removed in about 7-10 days. I will not need to see him back in my office other than on a p.r.n. basis. I think he probably could have a new peritoneal catheter implanted in 6 weeks or so after his peritonitis has resolved. Because of his obesity and the likelihood of adhesions following peritonitis, I would need to do this laparoscopically. OPERATIVE REPORT [id number] NOY OLIVIA JR TRANSINT:[id number] Voice Confirmation ID: [id number] DOCUMENT ID: [id number] EDGAR IBRAHIM MD at 0849 CC: ADOLFO YI [id number] DICTATION DATE: 03/29/20 1339 TITLE CLOSER: 03/29/20 1451 ADM IN [facility] [address] [id number]
--- NOTE | 2020-04-04 10:00 | NUR ---
PT TO DIALYSIS ON BED.
[2020-04-04 10:02] VITALS: BP 121/78
--- NOTE | 2020-04-04 14:17 | NUR ---
Nutrition Follow-up: NPO for EGD today to eval for gastritis, esophageal stricture, hiatal hernia. Noted pt c/o constipation. HD today. Wt: 214.9# (04/04); 218.2# (03/29) Labs reviewed Meds noted: Protonix, Mystatin -Rec resume diet when medically feasible. -Monitor wt. -RD following.
--- NOTE | 2020-04-04 16:03 | NUR ---
PT BACK TO ROOM FROM GI LAB. SLEEPING QUIETLY, AROUSE TO VOICE. AT BEDSIDE. INFUSION OF ANTIBIOTICS OFF TIME DUE TO DIALYSIS AND EGD, INFUSING NOW.
[2020-04-04 16:56] VITALS: BP 111/69
--- NOTE | 2020-04-04 20:16 | NUR ---
REPORT RECEIVED AND ROUNDING COMPLETE. PATIENT LATING IN BED IN LOW FOWLERS POSITION, AT BEDSIDE, PATIENT WOKE EASILY WHEN SPOKEN TO STATES HE IS SLEEPY AFTER TODAY. LEFT WRIST PIV IS RUNNING ABX AT THIS TIME, PIV IS PATENT WITH NO S/SX OF INFILTRATION. PATIENT IS WEARING NASAL CANNULA WITH O2 AT 3L. NO S/SX OF DISTRESS AT THIS TIME. PATIENT AND STATE NO NEEDS AT THIS TIME. CALL LIGHT WITHIN REACH AND BED IN LOWEST LOCKED POSITION.
[2020-04-04 20:17] VITALS: BP 115/66
[2020-04-05 00:24] VITALS: BP 99/66
--- NOTE | 2020-04-05 03:43 | NUR ---
WENT IN TO GIVE PATIENT MEDS AND PATIENT HAD PULLED PIV OUT IN HIS SLEEP, CLEANED UP THE BLOOD AND WILL PLACE A NEW PIV.
[2020-04-05 05:11] VITALS: BP 104/65
--- NOTE | 2020-04-05 05:59 | NUR ---
PAGED RENAL AP TO INFORM THEM THAT PATIENTS PIV IS OUT AND HAS BEEN STUCK BY MANY AND UNABLE TO PLACE NEW PIV.
--- NOTE | 2020-04-05 06:05 | NUR ---
DIANA NAM CALLED BACK AND STATED THEY WILL LOOK AT MEDICATIONS TODAY AND CHANGE THEM TO PO MEDS IF POSSIBLE.
[2020-04-05 07:31] LABS: BASOPHILS 0.1 % (0-2); EOSINOPHILS 1.6 % (0-7); HEMOGLOBIN 13.4 g/dL (13.5-17.5); IMMATURE GRANULOCYTES 1.6 % (0-5); LYMPHOCYTES 4.9 % (15-50); MCH 33.2 pg (26.0-34.0); MCHC 32.7 g/dL (31.0-37.0); MCV 101.5 fL (80.0-100.0); MEAN PLATELET VOLUME 11.1 fL (7.4-10.4); MONOCYTES 6.3 % (2-11); NEUTROPHILS 85.5 % (40-80); PLATELET COUNT 429 10x3/uL (130-400); RBC 4.04 10x6/uL (4.20-6.10); RDW 16.2 % (11.5-14.5)
[2020-04-05 07:39] LABS: WBC 16.7 10x3/uL (4.8-10.8)
[2020-04-05 08:25] VITALS: BP 116/68
[2020-04-05 12:37] VITALS: BP 108/60
--- NOTE | 2020-04-05 13:31 | NUR ---
PULLED DICK FROM LEFT LATERAL INCISION WITHOUT PROBLEM, NO DRAINAGE NOTED. MIDLINE DICK ON REMOVAL STARTED TO OPEN INCISION. LEFT THREE DICK IN MIDDLE. NO DRAINAGE NOTED TO CULTURE HOWEVER. DRESSING APPLIED.
[2020-04-05 16:20] VITALS: BP 80/38
[2020-04-05 20:00] VITALS: BP 114/64
--- NOTE | 2020-04-05 22:57 | NUR ---
PT IN BED, AAO X 3, AT BEDSIDE, RESP EVEN AND UNLABORED. NO DISTRESS NOTED, CL IN REACH, SR UP X 2.
[2020-04-06] VITALS: BP 115/65
[2020-04-06 04:00] VITALS: BP 116/71
[2020-04-06] MEDS ORDERED: Augmentin 500-125 TA PO (07:45)
[2020-04-06] MEDS ORDERED: DIFLUCAN100 MG PO (07:46)
[2020-04-06] MEDS ORDERED: PROTONIX40 MG PO (07:47)
[2020-04-06 09:00] VITALS: BP 113/64
[2020-04-06] MEDS ORDERED: REGLAN5 MG PO (11:11)
--- NOTE | 2020-04-06 11:44 | MORECARE ---
CASE MANAGEMENT DISCHARGE SUMMARY PATIENT: NOY OLIVIA JR UNIT: [id number] ADM DATE: 03/26/20 AGE: 59 : 64 SEX: M ROOM/BED: D.2134 AUTHOR: RODNEY,DOC PHYSICIAN: REFERRING PHYSICIAN: NOY MICHAEL MD DATE OF SERVICE: 04/06/20 Discharge Plan Patient Name: NOY OLIVIA Facility: [facility]:[place] : 1960 Planned Disposition: Home or Self Care Anticipated Discharge Date: Discharge Date: Expected LOS: Initial Reviewer: [email or web address] Initial Review Date: 03/26/2020 Generated: 04/06/20 12:44 pm Comments DCP- Discharge Planning Updated by [email or web address]: Dena Del Cid on 04/06/20 10:[address] CM contacted Olga Lidia Garcia, HD Liason, to inquire about HD chair in [place]. Await CB. Patient is currently in the HD unit, CM will revisit him when he returns. DC order for today. DCP- Discharge Planning Updated by [email or web address]: Lizzie Wright on 03/31/20 9:[address] Patient Name: NOY OLIVIA Admission Status: ER Accout number: [id number] Admission Date: 03-26-2020 : 1960 Admission Diagnosis:PERITONITIS, UNSPECIFIED Attending: NOY MICHAEL Current LOS: 5 Anticipated DC Date: Planned Disposition: Home or Self Care Primary Insurance: [employer] PPO Discharge Planning Comments: CM met with patient to complete initial dc planning assessment. CM educated patient on the CM role and verbal consent given by patient to complete assessment. CM verified patient's address, phone number, and emergency contact phone numbers. Pt and Lynne live at [address] [place] [address] in [facility]. The telephone number is [phone] Patient lives at home with his Lynne. Pt states he has been independent of all his needs. States he will need to be scheduled for a dialysis chair in [place]. Jerrica up CM notified of hospital stay. 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 At discharge patient plans to return home and feels this is a safe discharge. CM discussed availability of home health, rehab services, and medical equipment. Patient denied known discharge needs at this time, but will think about HH. EWELINA was signed for any HH and will decide on HH service if needed at discharge. Transportation provider at discharge will be Lynne . CM will continue to follow and will assist as needed with dc plans/needs. Label Maker: Lizzie Wright MSN,RN,CM DCPIA - Discharge Planning Initial Assessment Updated by [email or web address]: Lizzie Wright on 03/31/20 9:55 am * Is the patient Alert and Oriented? Yes * How many steps to enter\exit or inside your home? 0/0 * PCP DOES NOT HAVE PCP. SEES DR MICHAEL * Pharmacy [facility] * Preadmission Environment Home with Family * ADLs Independent * Equipment None * List name and contact numbers for known caregivers / representatives who currently or will assist patient after discharge: LYNNE [phone] * Verbal permission to speak to the caregivers and representatives has been obtained from the patient. Yes * Community resources currently utilized Other * Additional services required to return to the preadmission environment? No * Can the patient safely return to the preadmission environment? Yes * Has this patient been hospitalized within the prior 30 days at any hospital? No Coverage Notice Reviewer: [id number] - Lizzie Wright Notice Issued Date-Time: 03/30/2020 8:40 Notice Type: Patient Choice Letter Notice Delivered To: Patient Relationship to Patient: Lamination Machine Operator Name: Delivery Method: HAND - Hand Delivered Asiya Days: Prior Verbal Notification: Recipient Understood Notice: Yes Recipient Signature: Yes Med Rec Note Co-signed by Attending: Coverage Notice Comment: ewelina signed for any hh. will need to be in [facility] Reviewer: [email or web address] Oracio Del Cid Notice Issued Date-Time: 04/06/2020 11:17 Notice Type: IM Discharge Notice Notice Delivered To: Patient Relationship to Patient: Self Lamination Machine Operator Name: Noy Olivia Delivery Method: HAND - Hand Delivered Asiya Days: Prior Verbal Notification: Recipient Understood Notice: Yes Recipient Signature: Yes Med Rec Note Co-signed by Attending: Coverage Notice Comment: DC IMM signed by/delivered to patient. original to chart. Last DP export: 03/31/20 9:16 am Patient Name: NOY OLIVIA Page [id number] at 1144 All edits/amendments must be made on the electronic document DICTATION DATE: 04/06/20 1144 PNEUMATIC TOOL REPAIRER: HUGH 04/06/20 1144 RPT#: [id number] DC DATE: STATUS: ADM IN [facility] [address] [place] [address] END OF REPORT
--- NOTE | 2020-04-06 16:29 | MORECARE ---
CASE MANAGEMENT DISCHARGE SUMMARY PATIENT: NOY OLIVIA JR UNIT: [id number] ADM DATE: 03/26/20 AGE: 59 : 64 SEX: M ROOM/BED: D.0144 AUTHOR: TARYN STEVENS PHYSICIAN: REFERRING PHYSICIAN: NOY MICHAEL MD DATE OF SERVICE: 04/06/20 Discharge Plan Patient Name: NOY OLIVIA Facility: [facility]:[place] : 1960 Planned Disposition: Home or Self Care Anticipated Discharge Date: 04/06/20 Discharge Date: 04/06/2020 Expected LOS: 11 Initial Reviewer: [email or web address] Initial Review Date: 03/26/2020 Generated: 04/06/20 5:28 pm Comments DCP- Discharge Planning Updated by [email or web address]: Dena Del Cid on 04/06/20 3:[address] Contacted Olga Lidia Garcia regarding HD days in [place]: Tu/Thur/Sat @1215. First HD will be Wednesday 04/11 and he is to arrive @1145 for his initial paperwork. This information has been provided on patient's DC paperwork. CM contacted Olga Lidia Garcia, HD Liason, to inquire about HD chair in [place]. Await CB. Patient is currently in the HD unit, CM will revisit him when he returns. DC order for today. DCP- Discharge Planning Updated by [email or web address]: Lizzie Wright on 03/31/20 9:[address] Patient Name: NOY OLIVIA Admission Status: ER Accout number: [id number] Admission Date: 03-26-2020 : 1960 Admission Diagnosis:PERITONITIS, UNSPECIFIED Attending: NOY MICHAEL Current LOS: 5 Anticipated DC Date: Planned Disposition: Home or Self Care Primary Insurance: [employer] PPO Discharge Planning Comments: CM met with patient to complete initial dc planning assessment. CM educated patient on the CM role and verbal consent given by patient to complete assessment. CM verified patient's address, phone number, and emergency contact phone numbers. Pt and Lynne live at [address] [place] [address] in [facility]. The telephone number is [phone] Patient lives at home with his Lynne. Pt states he has been independent of all his needs. States he will need to be scheduled for a dialysis chair in [place]. Jerrica dialysis CM notified of hospital stay. 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 At discharge patient plans to return home and feels this is a safe discharge. CM discussed availability of home health, rehab services, and medical equipment. Patient denied known discharge needs at this time, but will think about HH. EWELINA was signed for any HH and will decide on HH service if needed at discharge. Transportation provider at discharge will be Lynne . CM will continue to follow and will assist as needed with dc plans/needs. Capacity Manager: Lizzie Wright MSN,RN,CM DCPIA - Discharge Planning Initial Assessment Updated by [id number]: Lizzie Wright on 03/31/20 9:55 am * Is the patient Alert and Oriented? Yes * How many steps to enter\exit or inside your home? 0/0 * PCP DOES NOT HAVE PCP. SEES DR MICHAEL * [facility] * Preadmission Environment Home with Family * ADLs Independent * Equipment None * List name and contact numbers for known caregivers / representatives who currently or will assist patient after discharge: LYNNE [phone] * Verbal permission to speak to the caregivers and representatives has been obtained from the patient. Yes * Community resources currently utilized Other * Additional services required to return to the preadmission environment? No * Can the patient safely return to the preadmission environment? Yes * Has this patient been hospitalized within the prior 30 days at any hospital? No Coverage Notice Reviewer: [email or web address] - Lizzie Wright Notice Issued Date-Time: 03/30/2020 8:40 Notice Type: Patient Choice Letter Notice Delivered To: Patient Relationship to Patient: Director Of Midwifery/Staff Midwife Name: Delivery Method: HAND - Hand Delivered Asiya Days: Prior Verbal Notification: Recipient Understood Notice: Yes Recipient Signature: Yes Med Rec Note Co-signed by Attending: Coverage Notice Comment: ewelina signed for any hh. will need to be in [facility] Reviewer: [email or web address] - Dena Del Cid Notice Issued Date-Time: 04/06/2020 11:17 Notice Type: IM Discharge Notice Notice Delivered To: Patient Relationship to Patient: Self Director Of Midwifery/Staff Midwife Name: Noy Meadgoldy Delivery Method: HAND - Hand Delivered Asiya Days: Prior Verbal Notification: Recipient Understood Notice: Yes Recipient Signature: Yes Med Rec Note Co-signed by Attending: Coverage Notice Comment: DC IMM signed by/delivered to patient. original to chart. Last DP export: 04/06/20 10:44 a Patient Name: NOY OLIVIA Page [phone] at 5449 All edits/amendments must be made on the electronic document DICTATION DATE: 04/06/201627 LOCOMOTIVE OPERATOR: HUGH 04/06/201627 RPT#: [id number] DC DATE:04/06/20 STATUS: DIS IN [facility] [address] [place] [address] END OF REPORT
--- NOTE | 2020-04-07 08:58 | MORECARE ---
CASE MANAGEMENT DISCHARGE SUMMARY PATIENT: NOY OLIVIA JR UNIT: [id number] ADM DATE: 03/26/20 AGE: 59 : 64 SEX: M ROOM/BED: D.2134 AUTHOR: TARYN STEVENS PHYSICIAN: REFERRING PHYSICIAN: NOY MICHAEL MD DATE OF SERVICE: 04/07/20 Discharge Plan Patient Name: NOY OLIVIA Facility: [facility]:[place] : 1960 Planned Disposition: Home or Self Care Anticipated Discharge Date: 04/06/20 Discharge Date: 04/06/2020 Expected LOS: 11 Initial Reviewer: [email or web address] Initial Review Date: 03/26/2020 Generated: 04/07/20 9:57 am Comments DCP- Discharge Planning Updated by [email or web address]: Dena Del Cid on 04/06/20 3:[address] Contacted Olga Lidia Garcia regarding HD days in [place]: Tu/Thur/Sat @1215. First HD will be Wednesday 04/11 and he is to arrive @1145 for his initial paperwork. This information has been provided on patient's DC paperwork. CM contacted Olga Lidia Garcia, HD Liason, to inquire about HD chair in [place]. Await CB. Patient is currently in the HD unit, CM will revisit him when he returns. DC order for today. DCP- Discharge Planning Updated by [email or web address]: Lizzie Wright on 03/31/20 9:[address] Patient Name: NOY OLIVIA Admission Status: ER Accout number: [id number] Admission Date: 03-26-2020 : 1960 Admission Diagnosis:PERITONITIS, UNSPECIFIED Attending: NOY MICHAEL Current LOS: 5 Anticipated DC Date: Planned Disposition: Home or Self Care Primary Insurance: [employer] PPO Discharge Planning Comments: CM met with patient to complete initial dc planning assessment. CM educated patient on the CM role and verbal consent given by patient to complete assessment. CM verified patient's address, phone number, and emergency contact phone numbers. Pt and Lynne live at [address] [place] [address] in [facility]. The telephone number is [phone] Patient lives at home with his Lynne. Pt states he has been independent of all his needs. States he will need to be scheduled for a dialysis chair in [place]. Jerrica dialysis CM notified of hospital stay. 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 At discharge patient plans to return home and feels this is a safe discharge. CM discussed availability of home health, rehab services, and medical equipment. Patient denied known discharge needs at this time, but will think about HH. EWELINA was signed for any HH and will decide on HH service if needed at discharge. Transportation provider at discharge will be Lynne . CM will continue to follow and will assist as needed with dc plans/needs. Concrete Polisher: Lizzie Wright MSN,RN,CM DCPIA - Discharge Planning Initial Assessment Updated by [email or web address]: Lizzie Wright on 03/31/20 9:55 am * Is the patient Alert and Oriented? Yes * How many steps to enter\exit or inside your home? 0/0 * PCP DOES NOT HAVE PCP. SEES DR MICHAEL * [facility] * Preadmission Environment Home with Family * ADLs Independent * Equipment None * List name and contact numbers for known caregivers / representatives who currently or will assist patient after discharge: LYNNE [phone] * Verbal permission to speak to the caregivers and representatives has been obtained from the patient. Yes * Community resources currently utilized Other * Additional services required to return to the preadmission environment? No * Can the patient safely return to the preadmission environment? Yes * Has this patient been hospitalized within the prior 30 days at any hospital? No Coverage Notice Reviewer: [id number] - Lizzie Wright Notice Issued Date-Time: 03/30/2020 8:40 Notice Type: Patient Choice Letter Notice Delivered To: Patient Relationship to Patient: Table Runner Name: Delivery Method: HAND - Hand Delivered Asiya Days: Prior Verbal Notification: Recipient Understood Notice: Yes Recipient Signature: Yes Med Rec Note Co-signed by Attending: Coverage Notice Comment: ewelina signed for any hh. will need to be in [facility] Reviewer: [email or web address] - Dena Del Cid Notice Issued Date-Time: 04/06/2020 11:17 Notice Type: IM Discharge Notice Notice Delivered To: Patient Relationship to Patient: Self Table Runner Name: Noy Meadgoldy Delivery Method: HAND - Hand Delivered Asiya Days: Prior Verbal Notification: Recipient Understood Notice: Yes Recipient Signature: Yes Med Rec Note Co-signed by Attending: Coverage Notice Comment: DC IMM signed by/delivered to patient. original to chart. Last DP export: 04/06/20 3:29 p Patient Name: NOY OLIVIA Page [phone] at 0858 All edits/amendments must be made on the electronic document DICTATION DATE: 04/07/20856 APRICOT PACKER: HUGH 04/07/2057 RPT#: [id number] DC DATE:04/06/20 STATUS: DIS IN [facility] [address] [place] [address] END OF REPORT
[2020-04-07 17:09] LABS: AMPHOTERICIN B MIC 0.5 ug/mL (())
== END 2020-04-06 16:19 | disposition home or self-care (01) | DRG 856 ==
LOC: D.ER 08:33 → D.M2 10:37
PROVIDERS: Emergency Medicine; Internal Medicine Nephrology; Surgery; ADMIT Internal Medicine Nephrology; ATTEND Internal Medicine Nephrology
PROC: 0WPG03Z Removal of Infusion Device from Peritoneal Cavity, Open Approach (ICD-10-PCS; principal; 2020-03-29 11:30)
PROC: 5A1D70Z Performance of Urinary Filtration, Intermittent, Less than 6 Hours Per Day (ICD-10-PCS; 2020-03-30)
PROC: 0DB68ZX Excision of Stomach, Via Natural or Artificial Opening Endoscopic, Diagnostic (ICD-10-PCS; 2020-04-04)
DX: T80.29XA Infection following other infusion, transfusion and therapeutic injection, initial encounter (principal); K65.9 Peritonitis, unspecified; N18.6 End stage renal disease; I12.0 Hypertensive chronic kidney disease with stage 5 chronic kidney disease or end stage renal disease; B37.89 Other sites of candidiasis; E87.6 Hypokalemia; R19.7 Diarrhea, unspecified; K21.0 Gastro-esophageal reflux disease with esophagitis; K29.70 Gastritis, unspecified, without bleeding; K31.84 Gastroparesis; K59.00 Constipation, unspecified